=== PATIENT | female | born 1940 | race Caucasian/White ===

== ENCOUNTER 2021-01-11 12:37 | Inpatient (IN) | payer BC, OTHER ==
[2021-01-11] MEDS ORDERED: LACTATED RINGERS SOLUTION 1000 ML INFUS.BAG IV ONE ×2 (13:16→15:57)
[2021-01-11 14:21] LABS: VENOUS BASE EXCESS 7.5 mmol/L (-2-2); VENOUS O2 SATURATION 54.9 % (70-80); VENOUS PCO2 48.5 mmHg (38-52); VENOUS PH 7.448 (7.310-7.410)
[2021-01-11 14:32] LABS: BASO % 0.7 % (0-2.0); EOS % 0.6 % (0-4.5); HEMATOCRIT 40.1 % (32.4-45.2); HEMOGLOBIN 13.1 GM/dL (10.7-15.3); LYMPH % 13.9 % (8-40); MCH 26.8 pg (25.7-33.7); MCHC 32.8 g/dl (32.0-36.0); MEAN CELL VOLUME 81.8 fl (80-96); MEAN PLT VOLUME 8.9 fl (7.5-11.1); MONO % 7.8 % (3.8-10.2); PLATELET COUNT 362 K/MM3 (134-434); RDW 18.9 % (11.6-15.6); WHITE BLOOD COUNT 13.2 K/mm3 (4.0-10.0)
[2021-01-11 14:44] LABS: INR 1.04 (0.83-1.09); PROTHROMBIN TIME (PATIENT) 12.6 SEC (9.7-13.0)
[2021-01-11 14:47] LABS: CALCIUM 8.9 mg/dL (8.5-10.1)
[2021-01-11 14:48] LABS: ACTIVATED PTT 30.1 SECONDS (25.2-36.5); ALBUMIN 2.9 g/dl (3.4-5.0); BLOOD UREA NITROGEN 30.8 mg/dL (7-18)
[2021-01-11 14:51] LABS: CREATININE 0.8 mg/dL (0.55-1.3)
[2021-01-11 14:53] LABS: BILIRUBIN,TOTAL 0.4 mg/dL (0.2-1); TOT PROT 6.5 g/dl (6.4-8.2)
[2021-01-11 19:15] LABS: EPI CELLS 11 /uL (0-25.1); HYALINE CASTS 1 /uL (0-3.1); PH,URINE 8.5 (5.0-8.0); URINE APPEARANCE CLEAR; URINE BACTERIA 126 /uL (0-1359); URINE BILIRUBIN NEGATIVE (NEGATIVE); URINE COLOR YELLOW; URINE GLUCOSE (UA) NEGATIVE (NEGATIVE); URINE KETONE TRACE (NEGATIVE); URINE LEUK ESTERASE NEGATIVE (NEGATIVE); URINE NITRITE NEGATIVE (NEGATIVE); URINE PROTEIN NEGATIVE (NEGATIVE); URINE RBC 16 /uL (0-23.9); URINE WBC 2 /uL (0-25.8)
[2021-01-11] MEDS ORDERED: D5-1/2NS+10 MEQ KCL - 10 MEQ/1,000 ML INFUS.BAG IV SCH (19:15)
[2021-01-11] MEDS: ENOXAPARIN NA (PORCINE) 40 MG/0.4 ML DISP.SYRIN SQ SCH (22:43)
[2021-01-11] MEDS: PANTOPRAZOLE SODIUM 40 MG VIAL IVPUSH SCH (22:43)
[2021-01-12 08:28] LABS: BASO % 0.5 % (0-2.0); EOS % 1.7 % (0-4.5); HEMATOCRIT 35.5 % (32.4-45.2); HEMOGLOBIN 11.6 GM/dL (10.7-15.3); LYMPH % 17.3 % (8-40); MCH 27.1 pg (25.7-33.7); MCHC 32.5 g/dl (32.0-36.0); MEAN CELL VOLUME 83.4 fl (80-96); MEAN PLT VOLUME 9.2 fl (7.5-11.1); MONO % 9.7 % (3.8-10.2); NEUT % 70.8 % (42.8-82.8); PLATELET COUNT 293 K/MM3 (134-434); RBC 4.26 M/mm3 (3.60-5.2); RDW 18.7 % (11.6-15.6); WHITE BLOOD COUNT 9.2 K/mm3 (4.0-10.0)
[2021-01-12 09:16] LABS: ALBUMIN 2.5 g/dl (3.4-5.0); BLOOD UREA NITROGEN 16.7 mg/dL (7-18); CALCIUM 8.2 mg/dL (8.5-10.1)
[2021-01-12 09:19] LABS: CREATININE 0.5 mg/dL (0.55-1.3)
[2021-01-12 09:21] LABS: BILIRUBIN,TOTAL 0.4 mg/dL (0.2-1); TOT PROT 5.3 g/dl (6.4-8.2)
[2021-01-12] MEDS: ENOXAPARIN NA (PORCINE) 40 MG/0.4 ML DISP.SYRIN SQ SCH (10:09)
[2021-01-12] MEDS: KCL 10 MEQ IVPB 10 MEQ/100 ML INFUS.BAG IVPB SCH ×3 (10:10→12:56)
[2021-01-12] MEDS: PANTOPRAZOLE SODIUM 40 MG VIAL IVPUSH SCH (10:10)
[2021-01-12] MEDS ORDERED: D5-1/2NS+20 MEQ KCL - 20 MEQ/1,000 ML INFUS.BAG IV SCH (12:15)
[2021-01-12] MEDS: POLYETHYLENE GLYCOL 3350 119 GM BTL PO SCH ×2 (20:01→21:11)
[2021-01-13] MEDS: POLYETHYLENE GLYCOL 3350 119 GM BTL PO SCH ×3 (06:23→23:00)
[2021-01-13 08:26] LABS: BASO % 0.4 % (0-2.0); EOS % 2.1 % (0-4.5); HEMATOCRIT 35.7 % (32.4-45.2); HEMOGLOBIN 11.6 GM/dL (10.7-15.3); LYMPH % 17.7 % (8-40); MCH 26.7 pg (25.7-33.7); MCHC 32.5 g/dl (32.0-36.0); MEAN CELL VOLUME 82.1 fl (80-96); MEAN PLT VOLUME 8.7 fl (7.5-11.1); MONO % 8.4 % (3.8-10.2); NEUT % 71.4 % (42.8-82.8); PLATELET COUNT 307 K/MM3 (134-434); RBC 4.34 M/mm3 (3.60-5.2); RDW 18.9 % (11.6-15.6); WHITE BLOOD COUNT 7.5 K/mm3 (4.0-10.0)
[2021-01-13 08:38] LABS: BLOOD UREA NITROGEN 10.8 mg/dL (7-18); CALCIUM 8.4 mg/dL (8.5-10.1)
[2021-01-13 08:39] LABS: MAGNESIUM 1.7 mg/dL (1.8-2.4)
[2021-01-13 08:42] LABS: CREATININE 0.5 mg/dL (0.55-1.3); PHOSPHOROUS 2.5 mg/dL (2.5-4.9)
[2021-01-13] MEDS: PANTOPRAZOLE SODIUM 40 MG VIAL IVPUSH SCH (09:19)
[2021-01-13] MEDS: ENOXAPARIN NA (PORCINE) 40 MG/0.4 ML DISP.SYRIN SQ SCH (09:19)
[2021-01-13] MEDS ORDERED: MAGNESIUM SULF 50% (8.12 MEQ/2 ML-1 GM VIAL) IVPB ONE (09:47)
[2021-01-13] MEDS: KCL 10 MEQ IVPB 10 MEQ/100 ML INFUS.BAG IVPB SCH ×3 (11:55→15:03)
[2021-01-13] MEDS ORDERED: POTASSIUM PHOSPHATE 30 MM in SODIUM CHLORIDE 500 ML IVPB ONE (13:30)
[2021-01-13] MEDS: AMINO ACIDS 4.25%/D5W 1,000 ML IV SCH (13:38)
[2021-01-13] MEDS ORDERED: FAT EMULSIONS 20% 250 ML PREMIX INFUS.BAG IV SCH (22:00)
[2021-01-13] MEDS: FAT EMULSIONS 250 ML IV SCH (23:00)
[2021-01-14] MEDS: AMINO ACIDS 4.25%/D5W 1,000 ML IV SCH ×4 (06:03→23:10)
[2021-01-14] MEDS: POLYETHYLENE GLYCOL 3350 119 GM BTL PO SCH ×3 (06:05→21:52)
[2021-01-14 09:21] LABS: BASO % 0.3 % (0-2.0); EOS % 1.2 % (0-4.5); HEMATOCRIT 37.2 % (32.4-45.2); HEMOGLOBIN 12.2 GM/dL (10.7-15.3); LYMPH % 10.8 % (8-40); MCH 27.1 pg (25.7-33.7); MCHC 32.9 g/dl (32.0-36.0); MEAN CELL VOLUME 82.4 fl (80-96); MEAN PLT VOLUME 9.2 fl (7.5-11.1); MONO % 8.4 % (3.8-10.2); NEUT % 79.3 % (42.8-82.8); PLATELET COUNT 312 K/MM3 (134-434); RBC 4.51 M/mm3 (3.60-5.2); RDW 18.5 % (11.6-15.6); WHITE BLOOD COUNT 10.1 K/mm3 (4.0-10.0)
[2021-01-14] MEDS: ENOXAPARIN NA (PORCINE) 40 MG/0.4 ML DISP.SYRIN SQ SCH (09:42)
[2021-01-14] MEDS: PANTOPRAZOLE SODIUM 40 MG VIAL IVPUSH SCH (09:42)
[2021-01-14 10:09] LABS: ALBUMIN 2.4 g/dl (3.4-5.0); CALCIUM 8.3 mg/dL (8.5-10.1)
[2021-01-14 10:10] LABS: BLOOD UREA NITROGEN 13.5 mg/dL (7-18)
[2021-01-14 10:12] LABS: BILIRUBIN,TOTAL 0.3 mg/dL (0.2-1); CREATININE 0.5 mg/dL (0.55-1.3); TOT PROT 5.8 g/dl (6.4-8.2)
[2021-01-14] MEDS ORDERED: PIPERACILLIN/TAZOB 3.375 GM 3.375 GM in DEXTROSE 5%-WATER - 50 ML IVPB ONE (13:25)
[2021-01-14] MEDS ORDERED: DEXTROSE 5%-WATER - 50 ML IVPB ONE (14:09)
[2021-01-14] MEDS ORDERED: PIPERACILLIN/TAZOBACTAM 3.375 GM VIAL IVPB ONE (14:09)
[2021-01-14 16:59] VITALS: BMI 19.5
[2021-01-14] MEDS: ASCORBIC ACID 500 MG TABLET (FP) PO SCH (21:52)
[2021-01-14] MEDS ORDERED: PT OWN MED DRAWER 7, Y5N ONE (23:04)
[2021-01-14] MEDS: FAT EMULSIONS 250 ML IV SCH (23:10)
[2021-01-15] MEDS: POLYETHYLENE GLYCOL 3350 119 GM BTL PO SCH ×3 (06:25→21:53)
[2021-01-15 08:38] LABS: BASO % 0.3 % (0-2.0); EOS % 1.1 % (0-4.5); HEMATOCRIT 38.2 % (32.4-45.2); HEMOGLOBIN 12.6 GM/dL (10.7-15.3); LYMPH % 11.5 % (8-40); MCH 27.2 pg (25.7-33.7); MEAN CELL VOLUME 82.4 fl (80-96); MEAN PLT VOLUME 8.8 fl (7.5-11.1); MONO % 8.7 % (3.8-10.2); NEUT % 78.4 % (42.8-82.8); PLATELET COUNT 311 K/MM3 (134-434); RBC 4.63 M/mm3 (3.60-5.2); RDW 18.6 % (11.6-15.6); WHITE BLOOD COUNT 9.6 K/mm3 (4.0-10.0)
[2021-01-15 09:04] LABS: BLOOD UREA NITROGEN 21.4 mg/dL (7-18)
[2021-01-15 09:05] LABS: CALCIUM 8.3 mg/dL (8.5-10.1); MAGNESIUM 1.8 mg/dL (1.8-2.4)
[2021-01-15 09:07] LABS: CREATININE 0.5 mg/dL (0.55-1.3); PHOSPHOROUS 2.5 mg/dL (2.5-4.9)
[2021-01-15] MEDS: PANTOPRAZOLE SODIUM 40 MG VIAL IVPUSH SCH (11:07)
[2021-01-15] MEDS: ENOXAPARIN NA (PORCINE) 40 MG/0.4 ML DISP.SYRIN SQ SCH (11:07)
[2021-01-15] MEDS: ZINC SULFATE 220 MG CAPSULE (FP) PO SCH (11:07)
[2021-01-15] MEDS: MULTIVITAMINS (DAILY MVI) TABLET (FP) PO SCH (11:07)
[2021-01-15] MEDS: ASCORBIC ACID 500 MG TABLET (FP) PO SCH ×2 (11:07→21:53)
[2021-01-15] MEDS ORDERED: PT OWN MED DRAWER 7, Y5N ONE (11:37)
[2021-01-15] MEDS: AMINO ACIDS 4.25%/D5W 1,000 ML IV SCH (15:30)
[2021-01-15] MEDS: ERTAPENEM SODIUM 0.5 GM in SODIUM CHLORIDE 50 ML IVPB SCH (18:22)
[2021-01-15] MEDS: FAT EMULSIONS 250 ML IV SCH (21:45)
[2021-01-16] MEDS ORDERED: PT OWN MED DRAWER 7, Y5N ONE (02:13)
[2021-01-16] MEDS: AMINO ACIDS 4.25%/D5W 1,000 ML IV SCH ×2 (03:00→17:38)
[2021-01-16] MEDS: POLYETHYLENE GLYCOL 3350 119 GM BTL PO SCH ×3 (05:55→21:53)
[2021-01-16] MEDS: PANTOPRAZOLE SODIUM 40 MG VIAL IVPUSH SCH (10:33)
[2021-01-16] MEDS: ENOXAPARIN NA (PORCINE) 40 MG/0.4 ML DISP.SYRIN SQ SCH (10:33)
[2021-01-16] MEDS: ERTAPENEM SODIUM 0.5 GM in SODIUM CHLORIDE 50 ML IVPB SCH (10:33)
[2021-01-16] MEDS: ZINC SULFATE 220 MG CAPSULE (FP) PO SCH (10:34)
[2021-01-16] MEDS: MULTIVITAMINS (DAILY MVI) TABLET (FP) PO SCH (10:34)
[2021-01-16] MEDS: ASCORBIC ACID 500 MG TABLET (FP) PO SCH ×2 (10:34→21:53)
[2021-01-16] MEDS: FAT EMULSIONS 250 ML IV SCH (21:47)
[2021-01-17] MEDS: PANTOPRAZOLE SODIUM 40 MG VIAL IVPUSH SCH (02:00)
[2021-01-17] MEDS: POLYETHYLENE GLYCOL 3350 119 GM BTL PO SCH ×3 (05:50→21:33)
[2021-01-17] MEDS: AMINO ACIDS 4.25%/D5W 1,000 ML IV SCH ×2 (08:20→21:30)
[2021-01-17 09:05] LABS: BASO % 0.5 % (0-2.0); HEMATOCRIT 35.4 % (32.4-45.2); HEMOGLOBIN 11.7 GM/dL (10.7-15.3); MCH 26.8 pg (25.7-33.7); MCHC 32.9 g/dl (32.0-36.0); MEAN CELL VOLUME 81.6 fl (80-96); MEAN PLT VOLUME 9.1 fl (7.5-11.1); MONO % 9.7 % (3.8-10.2); NEUT % 72.8 % (42.8-82.8); PLATELET COUNT 325 K/MM3 (134-434); RBC 4.34 M/mm3 (3.60-5.2); RDW 18.5 % (11.6-15.6); WHITE BLOOD COUNT 9.2 K/mm3 (4.0-10.0)
[2021-01-17 09:47] LABS: ALBUMIN 2.3 g/dl (3.4-5.0); BLOOD UREA NITROGEN 20.6 mg/dL (7-18); CALCIUM 8.4 mg/dL (8.5-10.1)
[2021-01-17 09:50] LABS: BILIRUBIN,TOTAL 0.4 mg/dL (0.2-1); CREATININE 0.5 mg/dL (0.55-1.3)
[2021-01-17 09:51] LABS: TOT PROT 5.8 g/dl (6.4-8.2)
[2021-01-17] MEDS: MULTIVITAMINS (DAILY MVI) TABLET (FP) PO SCH (10:00)
[2021-01-17] MEDS: ASCORBIC ACID 500 MG TABLET (FP) PO SCH ×2 (10:00→21:33)
[2021-01-17] MEDS: ZINC SULFATE 220 MG CAPSULE (FP) PO SCH (10:00)
[2021-01-17] MEDS ORDERED: GlUCAGON HUMAN RECOMBINANT 1 MG/VIAL IVPUSH ONE (11:45)
[2021-01-17] MEDS ORDERED: PT OWN MED DRAWER 7, Y5N ONE (11:58)
[2021-01-17] MEDS: ERTAPENEM SODIUM 0.5 GM in SODIUM CHLORIDE 50 ML IVPB SCH (12:01)
[2021-01-17] MEDS: ENOXAPARIN NA (PORCINE) 40 MG/0.4 ML DISP.SYRIN SQ SCH (12:01)
[2021-01-17] MEDS: KCL 10 MEQ IVPB 10 MEQ/100 ML INFUS.BAG IVPB SCH ×3 (13:00→16:50)
[2021-01-17] MEDS: COLLAGENASE CLOSTRIDIUM HIST. 30 GRAMS TUBE TP SCH (16:07)
[2021-01-17] MEDS: FAT EMULSIONS 250 ML IV SCH (21:32)
[2021-01-18] MEDS: POLYETHYLENE GLYCOL 3350 119 GM BTL PO SCH ×2 (05:12→16:10)
[2021-01-18] MEDS: ERTAPENEM SODIUM 0.5 GM in SODIUM CHLORIDE 50 ML IVPB SCH (09:34)
[2021-01-18] MEDS: PANTOPRAZOLE SODIUM 40 MG VIAL IVPUSH SCH (09:34)
[2021-01-18] MEDS: ENOXAPARIN NA (PORCINE) 40 MG/0.4 ML DISP.SYRIN SQ SCH (09:35)
[2021-01-18] MEDS: ZINC SULFATE 220 MG CAPSULE (FP) PO SCH (09:35)
[2021-01-18] MEDS: AMINO ACIDS 4.25%/D5W 1,000 ML IV SCH ×2 (09:36→10:19)
[2021-01-18] MEDS: COLLAGENASE CLOSTRIDIUM HIST. 30 GRAMS TUBE TP SCH (09:36)
[2021-01-18] MEDS: ASCORBIC ACID 500 MG TABLET (FP) PO SCH (09:36)
[2021-01-18] MEDS: MULTIVITAMINS (DAILY MVI) TABLET (FP) PO SCH (09:36)
[2021-01-18] MEDS: KCL 10 MEQ IVPB 10 MEQ/100 ML INFUS.BAG IVPB SCH ×3 (10:09→12:36)
[2021-01-18] MEDS ORDERED: CYANOCOBALAMIN 1,000 MCG TABLET (FP) PO SCH (11:45)
[2021-01-18] MEDS ORDERED: PT OWN MED DRAWER 7, Y5N ONE (16:09)
[2021-01-18 16:47] LABS: BASO % 0.7 % (0-2.0); EOS % 1.3 % (0-4.5); HEMATOCRIT 34.9 % (32.4-45.2); HEMOGLOBIN 11.3 GM/dL (10.7-15.3); LYMPH % 11.4 % (8-40); MCH 26.4 pg (25.7-33.7); MCHC 32.4 g/dl (32.0-36.0); MEAN CELL VOLUME 81.6 fl (80-96); MEAN PLT VOLUME 8.4 fl (7.5-11.1); MONO % 10.1 % (3.8-10.2); NEUT % 76.5 % (42.8-82.8); PLATELET COUNT 339 K/MM3 (134-434); RBC 4.28 M/mm3 (3.60-5.2); RDW 17.9 % (11.6-15.6); WHITE BLOOD COUNT 8.8 K/mm3 (4.0-10.0)
[2021-01-18 17:11] LABS: BLOOD UREA NITROGEN 14.9 mg/dL (7-18); CALCIUM 8.2 mg/dL (8.5-10.1)
[2021-01-18 17:15] LABS: CREATININE 0.4 mg/dL (0.55-1.3)
[2021-01-18 17:16] LABS: BILIRUBIN,TOTAL 0.3 mg/dL (0.2-1); TOT PROT 5.3 g/dl (6.4-8.2)
[2021-01-18] MEDS: FAT EMULSIONS 250 ML IV SCH (21:20)
[2021-01-18] MEDS: POLYETHYLENE GLYCOL 3350 119 GM BTL GT SCH (21:44)
[2021-01-18] MEDS: ASCORBIC ACID 500 MG TABLET (FP) GT SCH (21:45)
[2021-01-19] MEDS: POLYETHYLENE GLYCOL 3350 119 GM BTL GT SCH ×3 (05:20→21:40)
[2021-01-19] MEDS ORDERED: PT OWN MED DRAWER 7, Y5N ONE ×3 (06:41→11:12)
[2021-01-19 09:09] LABS: BASO % 0.3 % (0-2.0); EOS % 1.3 % (0-4.5); HEMATOCRIT 34.5 % (32.4-45.2); HEMOGLOBIN 11.5 GM/dL (10.7-15.3); LYMPH % 10.2 % (8-40); MCH 27.2 pg (25.7-33.7); MCHC 33.4 g/dl (32.0-36.0); MEAN CELL VOLUME 81.5 fl (80-96); MEAN PLT VOLUME 8.8 fl (7.5-11.1); MONO % 9.2 % (3.8-10.2); PLATELET COUNT 335 K/MM3 (134-434); RBC 4.24 M/mm3 (3.60-5.2); RDW 17.8 % (11.6-15.6); WHITE BLOOD COUNT 9.2 K/mm3 (4.0-10.0)
[2021-01-19 09:33] LABS: CALCIUM 8.3 mg/dL (8.5-10.1)
[2021-01-19 09:34] LABS: BLOOD UREA NITROGEN 16.3 mg/dL (7-18)
[2021-01-19] MEDS: PANTOPRAZOLE SODIUM 40 MG VIAL IVPUSH SCH (09:36)
[2021-01-19] MEDS: ZINC SULFATE 220 MG CAPSULE (FP) GT SCH (09:36)
[2021-01-19] MEDS: ASCORBIC ACID 500 MG TABLET (FP) GT SCH ×2 (09:36→21:39)
[2021-01-19] MEDS: ERTAPENEM SODIUM 0.5 GM in SODIUM CHLORIDE 50 ML IVPB SCH (09:36)
[2021-01-19] MEDS: ENOXAPARIN NA (PORCINE) 40 MG/0.4 ML DISP.SYRIN SQ SCH (09:36)
[2021-01-19 09:37] LABS: CREATININE 0.4 mg/dL (0.55-1.3)
[2021-01-19] MEDS: COLLAGENASE CLOSTRIDIUM HIST. 30 GRAMS TUBE TP SCH (09:37)
[2021-01-19] MEDS: MULTIVIT-MINERALS ORAL LIQUID GT SCH (09:37)
[2021-01-19] MEDS: CYANOCOBALAMIN 1,000 MCG TABLET (FP) GT SCH (11:13)
[2021-01-19] MEDS: FAT EMULSIONS 250 ML IV SCH (21:57)
[2021-01-20] MEDS: POLYETHYLENE GLYCOL 3350 119 GM BTL GT SCH ×3 (05:05→22:51)
[2021-01-20 09:34] LABS: BASO % 0.6 % (0-2.0); EOS % 1.1 % (0-4.5); HEMATOCRIT 34.2 % (32.4-45.2); HEMOGLOBIN 11.4 GM/dL (10.7-15.3); LYMPH % 10.5 % (8-40); MCH 27.2 pg (25.7-33.7); MCHC 33.3 g/dl (32.0-36.0); MEAN CELL VOLUME 81.9 fl (80-96); MEAN PLT VOLUME 8.5 fl (7.5-11.1); MONO % 11.1 % (3.8-10.2); NEUT % 76.7 % (42.8-82.8); PLATELET COUNT 347 K/MM3 (134-434); RBC 4.18 M/mm3 (3.60-5.2); RDW 18.5 % (11.6-15.6)
[2021-01-20 10:00] LABS: CALCIUM 8.3 mg/dL (8.5-10.1)
[2021-01-20 10:01] LABS: BLOOD UREA NITROGEN 16.1 mg/dL (7-18)
[2021-01-20 10:04] LABS: CREATININE 0.4 mg/dL (0.55-1.3)
[2021-01-20] MEDS ORDERED: PT OWN MED DRAWER 7, Y5N ONE (10:35)
[2021-01-20] MEDS: PANTOPRAZOLE SODIUM 40 MG VIAL IVPUSH SCH ×3 (10:55→15:09)
[2021-01-20] MEDS: ERTAPENEM SODIUM 0.5 GM in SODIUM CHLORIDE 50 ML IVPB SCH (10:55)
[2021-01-20] MEDS: ASCORBIC ACID 500 MG TABLET (FP) GT SCH ×2 (10:56→22:51)
[2021-01-20] MEDS: ZINC SULFATE 220 MG CAPSULE (FP) GT SCH (10:56)
[2021-01-20] MEDS: ENOXAPARIN NA (PORCINE) 40 MG/0.4 ML DISP.SYRIN SQ SCH (10:56)
[2021-01-20] MEDS: CYANOCOBALAMIN 1,000 MCG TABLET (FP) GT SCH (10:57)
[2021-01-20] MEDS: MULTIVIT-MINERALS ORAL LIQUID GT SCH (10:57)
[2021-01-20] MEDS: COLLAGENASE CLOSTRIDIUM HIST. 30 GRAMS TUBE TP SCH (11:01)
[2021-01-20] MEDS ORDERED: PANTOPRAZOLE 40 MG TABLET NR SCH (12:00)
[2021-01-20] MEDS: AMINO ACIDS/PROTEIN HYDROLYS 30 ML LIQUID.PKT GT SCH (17:16)
[2021-01-21 09:48] LABS: BASO % 0.7 % (0-2.0); EOS % 1.3 % (0-4.5); HEMATOCRIT 33.7 % (32.4-45.2); HEMOGLOBIN 11.2 GM/dL (10.7-15.3); MCH 27.2 pg (25.7-33.7); MCHC 33.3 g/dl (32.0-36.0); MEAN CELL VOLUME 81.6 fl (80-96); MEAN PLT VOLUME 8.1 fl (7.5-11.1); MONO % 10.3 % (3.8-10.2); NEUT % 74.7 % (42.8-82.8); PLATELET COUNT 318 K/MM3 (134-434); RBC 4.13 M/mm3 (3.60-5.2); RDW 18.3 % (11.6-15.6); WHITE BLOOD COUNT 10.4 K/mm3 (4.0-10.0)
[2021-01-21] MEDS ORDERED: PT OWN MED DRAWER 7, Y5N ONE (10:05)
[2021-01-21 10:19] LABS: BLOOD UREA NITROGEN 20.2 mg/dL (7-18); CALCIUM 8.1 mg/dL (8.5-10.1)
[2021-01-21 10:22] LABS: CREATININE 0.5 mg/dL (0.55-1.3)
[2021-01-21] MEDS: PANTOPRAZOLE SODIUM 40 MG VIAL IVPUSH SCH (10:22)
[2021-01-21] MEDS: AMINO ACIDS/PROTEIN HYDROLYS 30 ML LIQUID.PKT GT SCH (10:22)
[2021-01-21] MEDS: ZINC SULFATE 220 MG CAPSULE (FP) GT SCH (10:22)
[2021-01-21] MEDS: CYANOCOBALAMIN 1,000 MCG TABLET (FP) GT SCH (10:22)
[2021-01-21] MEDS: MULTIVIT-MINERALS ORAL LIQUID GT SCH (10:22)
[2021-01-21] MEDS: ASCORBIC ACID 500 MG TABLET (FP) GT SCH (10:22)
[2021-01-21] MEDS: COLLAGENASE CLOSTRIDIUM HIST. 30 GRAMS TUBE TP SCH (10:23)
[2021-01-21] MEDS: POLYETHYLENE GLYCOL 3350 119 GM BTL GT SCH (10:23)
[2021-01-21] MEDS: ENOXAPARIN NA (PORCINE) 40 MG/0.4 ML DISP.SYRIN SQ SCH (10:23)
[2021-01-21 15:27] VITALS: BP 139/74; PULSE 99; TEMP 97.8
== END 2021-01-21 17:27 | DRG 56 ==
LOC: JER 12:37 → JERBED 18:05 → J6S 21:00
PROVIDERS: ADMIT Internal Medicine; ATTEND Internal Medicine
PROC: 0DH63UZ Insertion of Feeding Device into Stomach, Percutaneous Approach (ICD-10-PCS; principal; 2021-01-17)
PROC: 3E0G76Z Introduction of Nutritional Substance into Upper GI, Via Natural or Artificial Opening (ICD-10-PCS; 2021-01-17)
DX: G30.9 Alzheimer's disease, unspecified (principal); L89.613 Pressure ulcer of right heel, stage 3; R53.2 Functional quadriplegia; E43 Unspecified severe protein-calorie malnutrition; G93.41 Metabolic encephalopathy; E87.0 Hyperosmolality and hypernatremia; R64 Cachexia; J90 Pleural effusion, not elsewhere classified; N39.0 Urinary tract infection, site not specified; Z68.1 Body mass index [BMI] 19.9 or less, adult; E03.9 Hypothyroidism, unspecified; E86.0 Dehydration; R63.0 Anorexia; E88.09 Other disorders of plasma-protein metabolism, not elsewhere classified; K59.00 Constipation, unspecified; F02.80 Dementia in other diseases classified elsewhere, unspecified severity, without behavioral disturbance, psychotic disturbance, mood disturbance, and anxiety; E83.42 Hypomagnesemia; E87.6 Hypokalemia; D72.829 Elevated white blood cell count, unspecified; L89.119 Pressure ulcer of right upper back, unspecified stage; L89.219 Pressure ulcer of right hip, unspecified stage; L89.899 Pressure ulcer of other site, unspecified stage; E83.39 Other disorders of phosphorus metabolism; K44.9 Diaphragmatic hernia without obstruction or gangrene; K57.30 Diverticulosis of large intestine without perforation or abscess without bleeding; K76.89 Other specified diseases of liver; B96.20 Unspecified Escherichia coli [E. coli] as the cause of diseases classified elsewhere; L89.222 Pressure ulcer of left hip, stage 2; M24.562 Contracture, left knee; M24.561 Contracture, right knee
CPT/HCPCS: 36415; 49440; 70491-TC; 71045-TC-FY; 71046-TC-FY; 74018-TC-FY; 74019-TC-FY; 74176-TC; 80048; 80053; 81003; 82607; 82803; 83605; 83735; 84100; 84439; 84443; 84481; 84484; 85025; 85610; 85730; 87040; 87086; 87186; 93005; 93010; 97162-GP; 99285-25; C9803; Q9967; U0003; U0005